=== PATIENT | female | born 1995 | race Caucasian/White ===

== ENCOUNTER 2023-08-12 03:18 | Emergency (ER) | payer MEDICAID ==
[~2023-08-12] VITALS: Ht 172.7 cm; Wt 73.0 kg
[2023-08-12 03:26] VITALS: O2SAT 99
[2023-08-12 04:00] VITALS: BP 130/70; PULSE 100; RESP 20; TEMP 98.4
[2023-08-12] MEDS: ACETAMINOPHEN 500MG TABLET PO ONE (04:00)
== END 2023-08-12 04:40 | disposition left against medical advice (07) ==
LOC: ER 03:26
DX: K08.89 Other specified disorders of teeth and supporting structures (principal); R51.9 Headache, unspecified; Z53.21 Procedure and treatment not carried out due to patient leaving prior to being seen by health care provider; Y04.0XXA Assault by unarmed brawl or fight, initial encounter; Y93.89 Activity, other specified; Y92.89 Other specified places as the place of occurrence of the external cause; Y99.8 Other external cause status
CPT/HCPCS: 70486; 81025; 99284